=== PATIENT | male | born 2005 | race Caucasian/White ===

== ENCOUNTER → 2023-07-20 | Outpatient (CLI) | payer BC ==
--- NOTE | 2023-07-20 17:23 | US ---
EXAMINATION TYPE: US scrotum with doppler. Grayscale and color Doppler Duplex imaging performed of t he scrotum. DATE OF EXAM: 07/20/2023 COMPARISON: NONE CLINICAL INDICATION: Male, 18 years old with history of N50.811 RT TESTICULAR PAIN; Pt states right t esticle pain x couple of months EXAM MEASUREMENTS: TESTICLES: Right Testicle: 5.0 x 2.5 x 3.5 cm Left Testicle: 5.1 x 2.2 x 3.3 cm EPIDIDYMIS HEAD: Right Epididymis: 1.0 cm Left Epididymis: 1.2 cm Doppler performed to assess for testicular vascularity; good bilateral color flow and waveforms are s een. There is no evidence of testicular torsion. Presence of hydroceles: No Presence of varicoceles: No No abnormality visualized to account for pt's pain IMPRESSION: 1. No suspicious ultrasound findings scrotal ultrasound.
== END | disposition home or self-care (01) ==
LOC: RADUSWWP 12:28
PROVIDERS: ATTEND Family Medicine
DX: N50.811 Right testicular pain (principal)
CPT/HCPCS: 76870; 93975